=== PATIENT | female | born 1975 | race Caucasian/White ===

== ENCOUNTER 2024-02-11 16:08 | Emergency (ER) | payer MEDICAID ==
[~2024-02-11] VITALS: Ht 180.3 cm; Wt 102.1 kg
[~2024-02-11 16:08] MED LIST: AMOX500T3 PO; TRAM50TA2 PO
[2024-02-11 18:41] LABS: Basophils # (auto) 0.1 10 ^3/uL (0-0.2); Basophils % (auto) 1.3 % (0.0-2.0); Eosinophils # (auto) 0.3 10 ^3/uL (0-0.8); Eosinophils % (auto) 3.6 % (0.0-7.0); Hemoglobin 14.9 g/dL (12.2-16.2); Lymphocytes % (auto) 26.8 % (10.0-50.0); Mean Corpuscular Hemoglobin 29.1 pg (28.0-32.0); Mean Corpuscular Hgb Conc. 33.1 g/dL (32.0-36.0); Mean Corpuscular Volume 87.7 fL (80.0-100.0); Monocytes # (auto) 0.5 10 ^3/uL (0-1.3); Monocytes % (auto) 6.4 % (0.0-12.0); Neutrophils # (auto) 4.5 10 ^3/uL (1.6-8.6); Neutrophils % (auto) 61.9 % (37.0-80.0); Nucleated Red Blood Cells % 0.1 %; Red Blood Cells 5.14 10^6/uL (4.0-5.20); Red Cell Distribution Width 14.6 % (11.8-14.3); White Blood Cell 7.3 10^3/uL (4.4-10.8)
[2024-02-11 18:53] LABS: Chloride 109 mmol/L (98-107); Potassium 4.2 mmol/L (3.5-5.1); Sodium 143 mmol/L (136-145)
[2024-02-11 18:54] LABS: Anion Gap 6 (5-15); Carbon Dioxide 28 mmol/L (20-30)
[2024-02-11 18:55] LABS: Calcium 10.2 mg/dL (8.5-10.1)
[2024-02-11 19:00] LABS: BUN/Creatinine Ratio 18.8 (10.0-20.0); Blood Urea Nitrogen 18 mg/dL (9-23); Glucose 97 mg/dL (74-106)
[2024-02-11 19:48] VITALS: BP 126/77; TEMP 97.7
[2024-02-11 19:49] VITALS: PULSE 80; RESP 18; O2SAT 98
== END 2024-02-11 19:52 | disposition home or self-care (01) ==
LOC: ER 16:08
DX: I89.0 Lymphedema, not elsewhere classified (principal); F17.210 Nicotine dependence, cigarettes, uncomplicated; Z79.899 Other long term (current) drug therapy
CPT/HCPCS: 36415; 71045; 80048; 83880; 85025